=== PATIENT | female | born 1935 | race Caucasian/White ===

== ENCOUNTER 2017-05-20 13:03 | Emergency (ER) | payer MEDICARE ==
[2017-05-20] MEDS ORDERED: TYLENOL 325 MG PO ONE (13:23)
[2017-05-20] MEDS ORDERED: TYLENOL 325 MG ONE (13:25)
[2017-05-20 13:34] LABS: BASOPHIL % 0.4 % (0.0-0.4); Eosinophil % 3.2 % (0.00-5.0); Granulocytes % 79.1 % (36.0-66.0); Lymphocytes % 9.4 % (24.0-44.0); Mean Cell Volume 87.9 fl (78-100); Mean Platelet Volume 10.2 fl (6-9.5); Monocytes % 7.9 % (0.0-12.0); Platelet Count 452 K/mm3 (150-450); Red Blood Count 3.47 M/mm3 (4.1-5.4); Red Cell Distribution Width 14.7 % (11.5-14.0); White Blood Count 10.8 K/mm3 (4.0-10.5)
--- NOTE | 2017-05-20 13:37 | ERPHSYRPT ---
- History of Present Illness Time Seen by Provider: 05/20/17 13:09 Source: patient, family (daughter), EMS Patient Subjective Stated Complaint: PT STATES AROUND 2 WEEKS AGO SHE FELL AND INJURED LEFT HUMERUS WITH A FRACTURE. PT BECAME CONCERNED TODAY BECAUSE HER LEFT HAND BEGAN TO SWELL. Triage Nursing Assessment: PT PINK, WARM, DRY. OLD BRUISING NOTED TO LEFT ARM AN DLEFT HAND. OLD BRUISE NOTED TO RIGHT KNEE. RADIAL PULSES STRONG. Physician History: CC: left hand swelling Hx: 81 y/o patient of Dr Driscoll. She fell two weeks ago and had a left humerus fx. Was seen at [facility] and had follow up with Dr Villeda. Tried a couple of different slings none of which fit well. She slept in the bed 2 nights and now has increasing swelling of the left hand. Pain in upper arm. She saw things with percocet so has not been taking it. Daughter reports some gait problems. No new injury known. No fever or shortness of breath. Severity: moderate Allergies/Adverse Reactions: No Known Drug Allergies Allergy (Unverified 05/20/17 13:10) Hx Tetanus, Diphtheria Vaccination/Date Given: Yes (UP TO DATE) Hx Influenza Vaccination/Date Given: Yes Hx Pneumococcal Vaccination/Date Given: Yes Immunizations Up to Date: Yes - Review of Systems Constitutional: No Fever, No Chills Respiratory: No Cough, No Dyspnea Abdominal/Gastrointestinal: No Abdominal Pain Musculoskeletal: Joint Pain (left upper arm), No Back Pain, No Neck Pain Neurological: No Focal Weakness, No Parasthesia All Other Systems: Reviewed and Negative - Past Medical History Pertinent Past Medical History: Yes Musculoskeletal History: Arthritis - Past Surgical History Past Surgical History: Yes Gastrointestinal: Cholecystectomy Musculoskeletal: Joint Replacement - Social History Smoking Status: Never smoker Exposure to second hand smoke: No Drug Use: none Patient Lives Alone: No - Nursing Vital Signs Nursing Vital Signs: Initial Vital Signs Temperature 97.8 F 05/20/17 13:05 Pulse Rate 91 H 05/20/17 13:05 Respiratory Rate 20 05/20/17 13:05 Blood Pressure 159/64 05/20/17 13:05 O2 Sat by Pulse Oximetry 97 05/20/17 13:05 - Physical Exam General Appearance: alert Eye Exam: PERRL/EOMI Ears, Nose, Throat Exam: moist mucous membranes Neck Exam: normal inspection, non-tender, supple Respiratory Exam: normal breath sounds Cardiovascular Exam: regular rate/rhythm, other (radial pulse intact) Gastrointestinal/Abdomen Exam: soft, No tenderness, No distention Extremity Exam: tenderness (left upper arm with bruising. Sweleling and edema of left hand.) Neurologic Exam: alert, oriented x 3, cooperative, sensation nml, No motor deficits Skin Exam: warm, dry SpO2 Interpretation: normal SpO2: 97 Oxygen Delivery: Room Air - Course Nursing assessment & vital signs reviewed: Yes Ordered Tests: Active Orders 24 hr Category Date Time Status IV Insertion STAT Care 05/20/17 13:16 Completed cath [Cath for Specimen-Straight] STAT Care 05/20/17 13:15 Active HUMERUS Stat Exams 05/20/17 13:17 Completed VENOUS UNILAT/LIMITED EXTREMIT [US] Stat Exams 05/20/17 13:16 Completed CBC W DIFF Stat Lab 05/20/17 13:25 Completed CMP Stat Lab 05/20/17 13:25 Completed CULTURE,URINE Stat Lab 05/20/17 13:25 Received UA W/ MICROSCOPIC Stat Lab 05/20/17 13:25 Completed Medication Summary Discontinued Medications Generic Name Dose Route Start Last Admin Trade Name Juanq PRN Reason Stop Dose Admin Acetaminophen 650 mg 05/20/17 13:23 05/20/17 13:28 Tylenol 325 Mg PO 05/20/17 13:24 650 mg STAT ONE Administration Acetaminophen Confirm 05/20/17 13:25 Tylenol 325 Mg Administered 05/20/17 13:26 Dose 650 mg .ROUTE .STK-MED ONE Lab/Rad Data: Laboratory Result Diagrams 05/20/17 13:25 05/20/17 13:25 Laboratory Results 05/20/17 05/20/17 05/20/17 Range/Units 13:25 13:25 13:25 WBC 10.8 H (4.0-10.5) K/mm3 RBC 3.47 L (4.1-5.4) M/mm3 Hgb 9.6 L (12.0-16.0) gm/dl Hct 30.5 L (35-47) % MCV 87.9 (78-100) fl MCH 27.6 (26-32) pg MCHC 31.5 L (32-36) g/dl RDW 14.7 H (11.5-14.0) % Plt Count 452 H (150-450) K/mm3 MPV 10.2 H (6-9.5) fl Gran % 79.1 H (36.0-66.0) % Lymphocytes % 9.4 L (24.0-44.0) % Monocytes % 7.9 (0.0-12.0) % Eosinophils % 3.2 (0.00-5.0) % Basophils % 0.4 (0.0-0.4) % Basophils # 0.04 (0-0.4) Sodium 140 (136-145) mEq/L Potassium 4.2 (3.5-5.1) mEq/L Chloride 105 (98-107) mEq/L Carbon Dioxide 25.3 (21-32) mEq/L Anion Gap 13.7 (5-15) MEQ/L BUN 39 H (9-20) mg/dL Creatinine 1.53 H (0.55-1.30) mg/dl Estimated GFR 35 ML/MIN Glucose 106 (70-110) MG/DL Calcium 9.2 (8.5-10.1) mg/dL Total Bilirubin 0.80 (0.2-1.0) mg/dL AST 24 (15-37) U/L ALT 51 (12-78) U/L Alkaline Phosphatase 104 (46-116) U/L Serum Total Protein 6.4 (6.4-8.2) gm/dL Albumin 2.8 L (3.4-5.0) g/dL Ur Collection Type CATH Urine Color YELLOW (YELLOW) Urine Appearance CLEAR (CLEAR) Urine pH 5.0 (5-6) Ur Specific Mcdaniels 1.020 (1.005-1.025) Urine Protein NEGATIVE (Negative) Urine Ketones NEGATIVE (NEGATIVE) Urine Blood 5-10 (0-5) Lamine/ul Urine Nitrite NEGATIVE (NEGATIVE) Urine Bilirubin SMALL (NEGATIVE) Urine Urobilinogen NORMAL (0-1) mg/dL Ur Leukocyte Esterase TRACE (NEGATIVE) Urine Microscopic RBC 0-2 (0-2) /HPF Urine Microscopic WBC 0-2 (0-5) /HPF Urine Bacteria FEW (NEGATIVE) /HPF Urine Glucose NEGATIVE (NEGATIVE) mg/dL Specimen Received 05/20/17 1330 - Progress Progress Note: 05/20/17 15:19 No DVT on sono. L:abs reviewed. No recent. Pt has anemia without symptoms and plans to follow up this week with Dr Driscoll. Will release home with daughter. Counseled pt/family regarding: lab results, diagnosis, need for follow-up, rad results - Departure Time of Disposition: 15:20 Departure Disposition: Home Clinical Impression: edema left hand, Closed fracture of left proximal humerus, Anemia Condition: Stable Critical Care Time: No Referrals: DONIS DRISCOLL MD [Primary Care Provider] - Instructions: Dependent Edema Additional Instructions: See Dr Driscoll this week. Simple hand exercises for swelling. Sling for comfort. Tylenol for comfort since not taking other pain medications. Return for problems or concerns.
[2017-05-20 13:38] LABS: Bilirubin SMALL (NEGATIVE); COMPLETE URINE MICROSCOPIC? YES; Collection Type CATH; Glucose NEGATIVE (NEGATIVE); Leukocyte Esterase TRACE (NEGATIVE)
[2017-05-20 13:39] LABS: Mean Corpuscular Hemoglobin 27.6 pg (26-32)
[2017-05-20 13:46] LABS: ADD URINE CULTURE? YES (NO); Bacteria FEW /HPF (NEGATIVE); WBC 0-2 /HPF (0-5)
[2017-05-20 13:50] LABS: ALBUMIN 2.8 g/dL (3.4-5.0); ANION GAP 13.7 MEQ/L (5-15); BILIRUBIN,TOTAL 0.8 mg/dL (0.2-1.0); Carbon Dioxide 25.3 mEq/L (21-32); Potassium 4.2 mEq/L (3.5-5.1); Total Protein 6.4 gm/dL (6.4-8.2)
--- NOTE | 2017-05-20 14:13 | XRAY ---
Indication: Pain following fall 2 weeks ago. Comparison: None 2 views of the left humerus demonstrates osteopenia and moderately displaced/angulated/impacted/comminuted humeral head fracture with minimal callus formation suggesting partial healing. Mid to lower lung pleural thickening/effusion. No other bony, articular, or soft tissue abnormalities.
--- NOTE | 2017-05-20 14:29 | XRAY ---
Indication: Pain and swelling. Fracture. Two-dimensional sonogram and color Doppler imaging of the major vessels of the left upper extremity was performed. Comparison: None Axillary and basilic veins not imaged due to known fracture. Remaining visualized left internal jugular, subclavian, cephalic, radial, ulnar, basilic, brachial, and median cubital veins are negative for thrombus. Veins demonstrate normal compressibility. Venous waveforms are normal. Impression: Limited left upper extremity venous ultrasound is negative for thrombus.
[2017-05-20 15:34] VITALS: BP 127/70; PULSE 87; O2SAT 98
== END 2017-05-20 15:34 | disposition home or self-care (01) ==
LOC: ED 13:03
DX: R60.9 Edema, unspecified (principal); S42.202D Unspecified fracture of upper end of left humerus, subsequent encounter for fracture with routine healing; D64.9 Anemia, unspecified; M79.622 Pain in left upper arm; Z79.899 Other long term (current) drug therapy
CPT/HCPCS: 99284; 81000; 36415; 85025; 80053; 87086; 93971; 73060; P9612; A9270-GY

== ENCOUNTER 2019-01-03 12:23 | Emergency (ER) | payer MEDICARE ==
[2019-01-03 13:19] LABS: BASOPHIL % 0.5 % (0.0-0.4); Basophil (Absolute #) 0.05 (0-0.4); Eosinophil % 3.8 % (0.00-5.0); Eosinophil (Absolute #) 0.36 (0-0.5); Granulocyte Absolute (ANC) 7.36 (1.4-6.9); Granulocytes % 76.7 % (36.0-66.0); Hematocrit 36.3 % (35-47); Hemoglobin 11.5 gm/dl (12.0-16.0); Lymphocyte (Absolute #) 1.13 (1.0-4.6); Lymphocytes % 11.8 % (24.0-44.0); Mean Cell Volume 92.1 fl (78-100); Mean Corpuscular Hemoglobin 29.1 pg (26-32); Mean Corpuscular Hgb Concent. 31.7 g/dl (32-36); Mean Platelet Volume 10.5 fl (6-9.5); Monocyte (Absolute #) 0.69 (0.0-1.3); Monocytes % 7.2 % (0.0-12.0); Platelet Count 311 K/mm3 (150-450); Red Blood Count 3.94 M/mm3 (4.1-5.4); Red Cell Distribution Width 14.2 % (11.5-14.0); White Blood Count 9.6 K/mm3 (4.0-10.5)
[2019-01-03 13:25] LABS: ALBUMIN 4.2 g/dL (3.5-5.0); ALKALINE PHOSPHATASE 69 U/L (38-126); ANION GAP 13.5 MEQ/L (5-15); BLOOD UREA NITROGEN 23 mg/dL (7-17); CHLORIDE 106 mmol/L (98-107); Calcium 9.9 mg/dL (8.4-10.2); Carbon Dioxide 27 mmol/L (22-30); Creatinine 1 0.92 mg/dL (0.52-1.04); Glucose 80 mg/dL (74-106); Potassium 4.5 mmol/L (3.5-5.1); SGOT/AST 19 U/L (14-36); SGPT/ALT 15 U/L (0-35); SODIUM 142 mmol/L (137-145); Total Protein 7.2 g/dL (6.3-8.2)
[2019-01-03] MEDS ORDERED: Lasix 40 MG/4 ML IV ONE ×2 (14:02→17:46)
[2019-01-03] MEDS ORDERED: Lasix 40 MG/4 ML ONE ×2 (14:30→17:56)
[2019-01-03] MEDS ORDERED: TYLENOL 325 MG PO STA (16:38)
[2019-01-03] MEDS ORDERED: TYLENOL 325 MG ONE (16:40)
[2019-01-03] MEDS ORDERED: Sodium Chloride 0.9% 500 ML 500 ML IV ONE ×2 (17:45→17:57)
[2019-01-03 18:14] VITALS: BP 157/85; PULSE 73; O2SAT 96
--- NOTE | 2019-01-03 18:27 | ERPHSYRPT ---
- History of Present Illness Source: patient Exam Limitations: no limitations Patient Subjective Stated Complaint: swelling and oozing from lower legs.. her legs have been swollen for "years" but they started oozing yesterday. unable to palpate pulses due to the large amount of swelling.. denies pain unless you press on her legs. enies SOB, cough, fever. no previous hx. edema present to above knee bilaterally. no redness noted Triage Nursing Assessment: swelling and oozing from lower legs.. her legs have been swollen for "years" but they started oozing yesterday. unable to palpate pulses due to the large amount of swelling.. denies pain unless you press on her legs. enies SOB, cough, fever. no previous hx. edema present to above knee bilaterally. no redness noted Physician History: Pt is an 83 y/o female that presented to the ED secondary to LEs edema. Pt does have a h/o LEs edema, but it is much more swollen today and having serous fluid draining from the extremities. Pt denies SOB or cough. No H/O CAD. No chest pain or palpitations. Pt states, she is elevating her legs all the time, and she is wrapping them in RERE bands. Pt has a resting tremor, and shuffling gate, but has no movement tremor. Pt never had Echo, but was told "I have a weak heart". Occurred: this morning Quality: constant Severity of Pain-Max: mild Severity of Pain-Current: mild Lower Extremities Pain: leg: bilateral (pitting edema +3 b/l. ), foot: bilateral (pitting edema +3 b/l. ), ankle: bilateral (pitting edema +3 b/l. ) Modifying Factors: Improves With: nothing Allergies/Adverse Reactions: No Known Drug Allergies Allergy (Unverified 05/20/17 13:10) Hx Tetanus, Diphtheria Vaccination/Date Given: Yes (UP TO DATE) Hx Influenza Vaccination/Date Given: Yes Hx Pneumococcal Vaccination/Date Given: Yes - Review of Systems Constitutional: No Fever, No Chills Eyes: No Symptoms Ears, Nose, & Throat: No Symptoms Respiratory: No Cough, No Dyspnea Cardiac: No Chest Pain, No Edema, No Syncope Abdominal/Gastrointestinal: No Abdominal Pain, No Nausea, No Vomiting, No Diarrhea Genitourinary Symptoms: No Dysuria Musculoskeletal: Other (pitting edema b/l +3 to knees.), No Back Pain, No Neck Pain Neurological: Gait Changes, Tremors (resting tremor. ), No Dizziness, No Focal Weakness, No Sensory Changes - Past Medical History Pertinent Past Medical History: Yes Musculoskeletal History: Arthritis, Fractures Other Medical History: non healing left shoulder fracture from 2 years ago after a fall - Past Surgical History Past Surgical History: Yes Gastrointestinal: Cholecystectomy Musculoskeletal: Joint Replacement - Social History Smoking Status: Never smoker Exposure to second hand smoke: No Drug Use: none Patient Lives Alone: No - Female History Hx Now: No - Nursing Vital Signs Nursing Vital Signs: Initial Vital Signs Temperature 98.3 F 01/03/19 12:44 Pulse Rate 79 01/03/19 12:44 Respiratory Rate 18 01/03/19 12:44 Blood Pressure 224/90 01/03/19 12:44 O2 Sat by Pulse Oximetry 97 01/03/19 12:44 Pain Scale Pain Intensity 0 - Physical Exam General Appearance: alert Eyes, Ears, Nose, Throat Exam: moist mucous membranes Neck Exam: non-tender, supple Cardiovascular/Respiratory Exam: chest non-tender, normal breath sounds, regular rate/rhythm, no respiratory distress Gastrointestinal/Abdominal Exam: non-tender, guarding Legs Exam: bilateral leg: soft tissue tenderness, swelling (+3 pitting edema b/l ) Foot Exam: bilateral foot: swelling (+3 b/l pitting edema) Neuro/Tendon Exam: normal sensation, normal motor functions, sensory deficit ( Tremors, resting. ) SpO2: 96 - Course Nursing assessment & vital signs reviewed: Yes EKG Interpreted by Me: Sinus Rhythm - CT Exams Right Lower Extremity CT Interpretation: Tele-radiologist Report (calcified and stenosed vessels, but 3 vesels runoff of b/l LEs, with significant LEs edema) Ordered Tests: Active Orders 24 hr Category Date Time Status CTA LOWER EXTREMITY W CONTRAST [CT] Stat Exams 01/03/19 14:44 Taken VENOUS BILATERAL EXTREMITY [US] Stat Exams 01/03/19 14:24 Taken BLOOD CULTURE Stat Lab 01/03/19 13:10 Received BNP [NT PRO BNP] Stat Lab 01/03/19 13:00 Completed CBC W DIFF Stat Lab 01/03/19 13:00 Completed CMP Stat Lab 01/03/19 13:00 Completed CULTURE,WOUND Stat Lab 01/03/19 14:15 Received Medication Summary Generic Name Dose Route Start Last Admin Trade Name Margarito PRN Reason Stop Dose Admin Sodium Chloride 500 mls @ 500 mls/hr 01/03/19 17:45 01/03/19 17:58 Sodium Chloride 0.9% 500 Ml IV 01/03/19 18:44 500 mls/hr .Q1H ONE Administration Discontinued Medications Generic Name Dose Route Start Last Admin Trade Name Margarito PRN Reason Stop Dose Admin Acetaminophen 650 mg 01/03/19 16:38 01/03/19 16:41 Tylenol 325 Mg PO 01/03/19 16:39 650 mg STAT STA Administration Acetaminophen Confirm 01/03/19 16:40 Tylenol 325 Mg Administered 01/03/19 16:41 Dose 650 mg .ROUTE .STK-MED ONE Furosemide 40 mg 01/03/19 14:02 01/03/19 14:31 Lasix 40 Mg/4 Ml IV 01/03/19 14:03 40 mg STAT ONE Administration Furosemide Confirm 01/03/19 14:30 Lasix 40 Mg/4 Ml Administered 01/03/19 14:31 Dose 40 mg .ROUTE .STK-MED ONE Furosemide 40 mg 01/03/19 17:46 01/03/19 17:58 Lasix 40 Mg/4 Ml IV 01/03/19 17:47 40 mg STAT ONE Administration Furosemide Confirm 01/03/19 17:56 Lasix 40 Mg/4 Ml Administered 01/03/19 17:57 Dose 40 mg .ROUTE .STK-MED ONE Sodium Chloride Confirm 01/03/19 17:57 Sodium Chloride 0.9% 500 Ml Administered 01/03/19 17:58 Dose 500 mls @ ud IV .STK-MED ONE Lab/Rad Data: Laboratory Result Diagrams 01/03/19 13:00 01/03/19 13:00 Laboratory Results 01/03/19 01/03/19 01/03/19 Range/Units 13:00 13:00 13:00 WBC 9.6 (4.0-10.5) K/mm3 RBC 3.94 L (4.1-5.4) M/mm3 Hgb 11.5 L (12.0-16.0) gm/dl Hct 36.3 (35-47) % MCV 92.1 (78-100) fl MCH 29.1 (26-32) pg MCHC 31.7 L (32-36) g/dl RDW 14.2 H (11.5-14.0) % Plt Count 311 (150-450) K/mm3 MPV 10.5 H (6-9.5) fl Gran % 76.7 H (36.0-66.0) % Eos # (Auto) 0.36 (0-0.5) Absolute Lymphs (auto) 1.13 (1.0-4.6) Absolute Monos (auto) 0.69 (0.0-1.3) Lymphocytes % 11.8 L (24.0-44.0) % Monocytes % 7.2 (0.0-12.0) % Eosinophils % 3.8 (0.00-5.0) % Basophils % 0.5 (0.0-0.4) % Absolute Granulocytes 7.36 H (1.4-6.9) Basophils # 0.05 (0-0.4) Sodium 142 (137-145) mmol/L Potassium 4.5 (3.5-5.1) mmol/L Chloride 106 (98-107) mmol/L Carbon Dioxide 27 (22-30) mmol/L Anion Gap 13.5 (5-15) MEQ/L BUN 23 H (7-17) mg/dL Creatinine 0.92 (0.52-1.04) mg/dL Estimated GFR > 60.0 ML/MIN Glucose 80 (74-106) mg/dL Calcium 9.9 (8.4-10.2) mg/dL Total Bilirubin 1.30 (0.2-1.3) mg/dL AST 19 (14-36) U/L ALT 15 (0-35) U/L Alkaline Phosphatase 69 (38-126) U/L NT-Pro-B Natriuret Pep 2200 H (0-1800) pg/mL Serum Total Protein 7.2 (6.3-8.2) g/dL Albumin 4.2 (3.5-5.0) g/dL - Progress Progress: improved Progress Note: 01/03/19 18:35 Pt was evaluated in the ED. Dopplers of b/l LEs was negative for DVTs. CTA of LEs showed stenosis and plaque, but no significant PVD. Pt had slightly elevated pro-BNP. Lasix 40mg IV was given once, and post CTA, IVF 500ml was given IV with a Lasix 40mg IV, to wash the kidneys from dye. Pt was instructed to f/u with Neurology for her tremor, and f/u with her PCP for PT lymphedema clinic. Discussed with : Colten Will see patient in: office Counseled pt/family regarding: lab results, diagnosis, need for follow-up, rad results - Departure Time of Disposition: 18:38 Departure Disposition: Home Clinical Impression: Lymphedema of both lower extremities Condition: Stable Critical Care Time: No Referrals: DONIS DRISCOLL MD [Primary Care Provider] - Additional Instructions: F/U with Neurology. F/u with PCP for lymphedema clinic. Avoid salt in food, and keep low salt diet.
--- NOTE | 2019-01-03 20:54 | XRAY ---
Indication: Bilateral leg pain and swelling 2 years. Two-dimensional sonogram and color Doppler imaging of the major venous vessels of the left and right leg was performed. Comparison: None No thrombus seen in the examined deep venous vessels of the left and right leg including greater saphenous veins. Veins demonstrate normal compressibility. Venous waveforms are normal with and without augmentation. Incidental 2.9 x 1.6 x 4.3 cm right Tejeda's cyst. Impression: Left and right legs negative for DVT. Incidental right Tejeda's cyst. Comment: Preliminary report was given.
--- NOTE | 2019-01-04 09:07 | XRAY ---
Indication: Bilateral lower extremity swelling and edema. Cool to touch. Conventional contrast enhanced CTA bilateral lower extremity runoff performed using 125 cc Isovue 370 contrast. Two-dimensional sagittal and coronal reformatted images obtained. Additional 3-dimensional reformatted images obtained using a separate workstation. Comparison: None Right leg runoff demonstrates mild scattered arteriosclerotic calcifications in the common iliac and distal common femoral arteries without critical stenosis or obstruction. Lesser minimal scattered calcifications seen throughout the superficial femoral artery. Deep femoral artery widely patent. Popliteal artery widely patent. Trifurcation vessels demonstrates moderate scattered arteriosclerotic disease with anterior tibial artery tapering off by lower leg level. Only attenuated posterior tibial and dorsal pedal arteries crosses the ankle joint supply the right foot. Left leg runoff demonstrates mild scattered calcifications in the common iliac and distal common femoral arteries. Deep femoral artery widely patent. Very minimal scattered calcifications seen throughout the superficial femoral artery. Left knee prosthesis produces extreme beam artifact obscuring mid popliteal artery. Trifurcation vessels demonstrates moderate scattered disease with posterior tibial artery tapering off by lower leg level. Only attenuated anterior tibial and dorsal pedal arteries cross the ankle joint to supply the left foot. Incidental CT findings include scattered sigmoid diverticulosis, small fatty umbilical hernia, mild degenerative changes of both hips, and diffuse lower leg cutaneous and subcutaneous soft tissue swelling/edema. Impression: 1. Minimal/mild scattered arteriosclerotic disease bilaterally as detailed above. Left popliteal artery obscured due to beam artifact from knee prosthesis. Left and right lower legs demonstrate two-vessel runoff. 2. Incidental sigmoid diverticulosis, fatty umbilical hernia, bilateral hip degenerative arthropathy, and nonspecific bilateral lower leg soft tissue swelling/edema. Comment: Preliminary interpretation was made by [facility]. No critical discrepancy. CT DI 13.79
== END 2019-01-03 19:44 | disposition home or self-care (01) ==
LOC: ED 12:23
DX: I89.0 Lymphedema, not elsewhere classified (principal); M79.89 Other specified soft tissue disorders
CPT/HCPCS: 36000; 36415; 73706; 80053; 83880; 85025; 87040; 87070; 93970; 96360; 96374; 96375; 96376; 99284; J1940; A9270-GY